=== PATIENT | male | born 1990 | race Caucasian/White ===

== ENCOUNTER 2020-02-17 02:15 | Emergency (ER) | payer SELFPAY ==
[~2020-02-17] VITALS: Ht 175.3 cm; Wt 83.9 kg
--- NOTE | 2020-02-17 02:20 | NUR ---
[facility] to [facility]
--- NOTE | 2020-02-17 02:24 | NUR ---
Dr. Michael with patient for MSE.
[2020-02-17] MEDS ORDERED: ACETAMINOPHEN EXTRA STRENGTH 500 MG TAB PO ONE (02:25)
[2020-02-17 02:32] VITALS: BP 141/76
--- NOTE | 2020-02-17 02:34 | NUR ---
Pt taken to CT
--- NOTE | 2020-02-17 02:40 | NUR ---
Tamiko gottlieb in [facility] - 02/17/20 at 0244 by [facility] see complete assessment.
--- NOTE | 2020-02-17 02:41 | NUR ---
pt returned from CT via w/c.
--- NOTE | 2020-02-17 02:42 | NUR ---
see complete assessment.
[2020-02-17 02:44] VITALS: BP 138/79
--- NOTE | 2020-02-17 02:47 | NUR ---
pt refused pain meds as ordered. Dr. Michael notified. no actions at this time.
--- NOTE | 2020-02-17 03:18 | NUR ---
pt discharged back to [facility] Officer [facility] #[id number] with [facility]. discharge instructions explained with pt. questions answered.
== END 2020-02-17 03:18 ==
LOC: MED 02:15
DX: S00.93XA Contusion of unspecified part of head, initial encounter (principal); R56.9 Unspecified convulsions; W26.9XXA Contact with unspecified sharp object(s), initial encounter; Y93.89 Activity, other specified; Y92.89 Other specified places as the place of occurrence of the external cause; Y99.8 Other external cause status
CPT/HCPCS: 70486; 99284